=== PATIENT | female | born 2000 | race Caucasian/White ===

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

== ENCOUNTER → 2024-02-19 | Outpatient (CLI) | payer OTHER ==
--- NOTE | 2024-02-20 18:38 | US ---
EXAMINATION TYPE: US thyroid st tissue head/neck DATE OF EXAM: 02/19/2024 COMPARISON: 10/18/2019 CLINICAL INDICATION: Female, 23 years old with history of I88.9 NONSPECIFIC LYMPHADENITIS; TECHNIQUE: Grayscale and color Doppler imaging of the neck for lymphadenopathy. FINDINGS: Bilateral lymph nodes seen Right Neck: 1. 1.2x0.5x0.7cm, Cortex= 0.4cm 2. 2.4x0.7x1.8cm, Cortex= 0.5cm 3. 2.2x0.7x1.6cm, Cortex= 0.4cm Left Neck: 1. 2.4x0.9x1.7cm, Cortex= 0.7cm IMPRESSION: Bilateral neck lymph nodes which are within normal limits for size measuring less than 10 mm in short axis. [facility], , 02/20/2024 6:35 PM
== END | disposition home or self-care (01) ==
LOC: RADUSWWP 12:26
PROVIDERS: ATTEND Family Medicine
DX: I88.9 Nonspecific lymphadenitis, unspecified (principal)
CPT/HCPCS: 76536

== ENCOUNTER 2024-06-03 12:32 | Emergency (ER) | payer OTHER ==
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
[2024-06-03] MEDS: KETOROLAC 15 MG/ML 1 ML VIAL IM STA (14:56)
[2024-06-03] MEDS: HYDROmorphone 1 MG/ML 1 ML SYRINGE IM STA (14:57)
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
[2024-06-03 16:58] VITALS: BP 110/82; PULSE 90; RESP 20; TEMP 98
== END 2024-06-03 16:58 | disposition home or self-care (01) ==
LOC: EC 12:32
DX: M54.9 Dorsalgia, unspecified (principal); Z88.0 Allergy status to penicillin; X58.XXXA Exposure to other specified factors, initial encounter
CPT/HCPCS: 99284 ×2; 96372 ×2; 72128; 72125; 70450; J1171; J1885